=== PATIENT | male | born 1960 | race African-American/Black ===

== ENCOUNTER 2021-09-08 23:15 | Emergency (ER) | payer OTHER, BC ==
[~2021-09-08] VITALS: Ht 172.7 cm; Wt 100.0 kg
[2021-09-08 23:24] VITALS: BP 128/77
== END 2021-09-09 00:22 | disposition home or self-care (01) ==
LOC: ER 23:15
DX: R42 Dizziness and giddiness (principal); I10 Essential (primary) hypertension
CPT/HCPCS: 99283